=== PATIENT | female | born 1975 | race Caucasian/White ===

== ENCOUNTER 2017-01-28 23:47 | Emergency (ER) | payer OTHER ==
--- NOTE | 2017-01-29 03:27 | ED ORDER SUMMARY ---
..... Patient: HENOK TIRADO OrderSheet Merg[facility] VisitID: [id number] [address] [place] [address] 41y, F Registration Date/Time: 01/28/2017 ORDER SHEET Weight: 68.0 kg (stated) Allergies: Sulfa Antibiotics GENERAL ORDERS: UA-Culture if indicated Urgent (02:29 01/29/2017 Stacy COY) (Ack 2:35 Tami Specimen Collector) (2:42 Jakob Hernandez) MEDICATION ORDERS: IV FLUIDS: ORDER SHEET NOTES: [Electronically signed by Todd Scott R.N. (03:40 01/29/2017)] [Electronically signed by Indiana Lewis MD (17:32 01/29/2017)] [Electronically locked/signed by Todd Scott R.N. (03:40 01/29/2017)]
--- NOTE | 2017-01-29 03:27 | ED ORDER SUMMARY ---
..... Patient: HENOK TIRADO OrderSheet [facility] VisitID: [id number] [address] [place] [address] 41y, F Registration Date/Time: 01/28/2017 ORDER SHEET Weight: 68.0 kg (stated) Allergies: Sulfa Antibiotics GENERAL ORDERS: UA-Culture if indicated Urgent (02:29 01/29/2017 Stacy COY) (Ack 2:35 Tami Wood Mill Supervisor) (2:42 Jakob Hernandez) MEDICATION ORDERS: IV FLUIDS: ORDER SHEET NOTES: [Electronically signed by Todd Scott R.N. (03:40 01/29/2017)] [Electronically signed by Indiana Lewis MD (17:32 01/29/2017)] [Electronically locked/signed by Todd Scott R.N. (03:40 01/29/2017)]
--- NOTE | 2017-01-29 03:27 | ED NURSING NOTES ---
Clinical Report - Nurses [facility] [address] [place] [address] 01/28/2017 23:48 Patient: HENOK TIRADO TRIAGE Triage time 0006. Acuity: LEVEL 3. Chief Complaint: ABDOMINAL PAIN, NAUSEA and DIARRHEA. --00:15 Todd Scott R.N. 00:05 01/29/17. BP: 105/64. HR: 54. RR: 16. O2 saturation: 100%. Temp: 98.2 F. Pain level now 05/06. --00:15 Todd Scott R.N. Weight: 68 kg stated. Height/Length: 66 inches Per Patient. BMI: 24.2. --00:15 Todd Scott R.N. Medications Acyclovir Oral 200 mg, 2x a day. Amitriptyline HCl Oral 25 mg, at bedtime. Dicyclomine HCl Oral 20 mg, 4x a day. Gabapentin Oral (Tablet 600 mg) 1-1/2 tablets, 3x a day. Hydrochlorothiazide Oral 25 mg, daily. Synthroid Oral 125 mcg, daily. Vitamin D Oral (Tablet 1000 unit), q day. --00:11 Todd Scott R.N. Lyrica Oral. --00:11 Todd Scott R.N. Ampyra Oral. --00:11 Todd Scott R.N. DULoxetine HCl Oral. --00:13 Todd Scott R.N. Allergies Sulfa Antibiotics. --00:11 Todd Scott R.N. History Arrived by private vehicle. Historian: significant other and patient. Accompanied by friend. This started just prior to arrival. She has had nausea, diarrhea and abdominal pain. Treatment ENTRY OPERATOR: (dicylomine). SOCIAL HX: Never smoker. History of heavy drug use: marijuana. No alcohol use. FALL RISK ASSESSMENT: Fall risk assessment completed. No fall risk identified. NUTRITIONAL RISK ASSESSMENT: The nutritional risk assessment revealed no deficiencies. FUNCTIONAL ASSESSMENT: Functional assessment: no impairments noted. LEARNING NEEDS ASSESSMENT: The learning needs assessment revealed no barriers. SKIN INTEGRITY ASSESSMENT: Skin integrity risk assessment completed. No skin integrity risk identified. --00:15 Todd Scott R.N. PROBLEMS: Abdominal Pain. Dehydration. LNMP - Last Normal Menstrual Period. Herpes. Multiple Sclerosis. --00:13 Todd Scott R.N. ADDITIONAL SURGERIES: Gastric bypass. Kamaljit cath. --00:13 Todd Scott R.N. Interventions ID band on patient. --00:15 Todd Scott R.N. PHYSICAL ASSESSMENT GENERAL / NEURO / PSYCH: Alert. Oriented X 4. Appears in no acute distress. HEENT: Mucous membranes are pink. RESPIRATORY: Respirations not labored. Breath sounds within normal limits. CVS: Normal sinus rhythm noted. Capillary refill less than 2 seconds. GI / : Abdomen soft. Bowel sounds within normal limits. SKIN: Skin is warm and dry. --00:15 Todd Scott R.N. Ambulatory to room. Patient gowned. --00:15 Todd Scott R.N. NURSING PROGRESS NOTES Patient gowned. Head of bed elevated. Reassurance given. Patient identifiers checked. Call light placed in reach. Bed placed in lowest position. Brakes of bed on. --00:16 Todd Scott R.N. ( pt states she had to push her electric chair after the battery went earlier today.). --01:37 Todd Scott R.N. DISPOSITION / DISCHARGE Departure time: 0. Condition at departure: improved. No learning barriers present. Discharge instructions provided and reviewed with quality control director and the patient. Reviewed warnings. Treatments reviewed. Reviewed referrals. Patient and quality control director verbalized understanding. Written instructions provided in Malaysian. The patient was discharged by the physician. She was discharged home and accompanied by quality control director. She left the Emergency Department ambulatory and via private vehicle. Railroad Hand driving. --03:39 Todd Scott R.N. 03:38 01/29/17. BP: 105/65. HR: 55. RR: 16. O2 saturation: 100%. Temp: 98 F. Pain level now 02/03. --03:39 Todd Scott R.N. Locked/Released at 01/29/2017 3:40 by Todd Scott R.N.
--- NOTE | 2017-01-29 03:27 | ED NURSING NOTES ---
Clinical Report - Nurses [facility] [address] [place] [address] 01/28/2017 23:48 Patient: HENOK TIRADO TRIAGE Triage time 0006. Acuity: LEVEL 3. Chief Complaint: ABDOMINAL PAIN, NAUSEA and DIARRHEA. --00:15 Todd Scott R.N. 00:05 01/29/17. BP: 105/64. HR: 54. RR: 16. O2 saturation: 100%. Temp: 98.2 F. Pain level now 05/06. --00:15 Todd Scott R.N. Weight: 68 kg stated. Height/Length: 66 inches Per Patient. BMI: 24.2. --00:15 Todd Scott R.N. Medications Acyclovir Oral 200 mg, 2x a day. Amitriptyline HCl Oral 25 mg, at bedtime. Dicyclomine HCl Oral 20 mg, 4x a day. Gabapentin Oral (Tablet 600 mg) 1-1/2 tablets, 3x a day. Hydrochlorothiazide Oral 25 mg, daily. Synthroid Oral 125 mcg, daily. Vitamin D Oral (Tablet 1000 unit), q day. --00:11 Todd Scott R.N. Lyrica Oral. --00:11 Todd Scott R.N. Ampyra Oral. --00:11 Todd Scott R.N. DULoxetine HCl Oral. --00:13 Todd Scott R.N. Allergies Sulfa Antibiotics. --00:11 Todd Scott R.N. History Arrived by private vehicle. Historian: significant other and patient. Accompanied by friend. This started just prior to arrival. She has had nausea, diarrhea and abdominal pain. Treatment PIPING DESIGN SPECIALIST: (dicylomine). SOCIAL HX: Never smoker. History of heavy drug use: marijuana. No alcohol use. FALL RISK ASSESSMENT: Fall risk assessment completed. No fall risk identified. NUTRITIONAL RISK ASSESSMENT: The nutritional risk assessment revealed no deficiencies. FUNCTIONAL ASSESSMENT: Functional assessment: no impairments noted. LEARNING NEEDS ASSESSMENT: The learning needs assessment revealed no barriers. SKIN INTEGRITY ASSESSMENT: Skin integrity risk assessment completed. No skin integrity risk identified. --00:15 Todd Scott R.N. PROBLEMS: Abdominal Pain. Dehydration. LNMP - Last Normal Menstrual Period. Herpes. Multiple Sclerosis. --00:13 Todd Scott R.N. ADDITIONAL SURGERIES: Gastric bypass. Kamaljit cath. --00:13 Todd Scott R.N. Interventions ID band on patient. --00:15 Todd Scott R.N. PHYSICAL ASSESSMENT GENERAL / NEURO / PSYCH: Alert. Oriented X 4. Appears in no acute distress. HEENT: Mucous membranes are pink. RESPIRATORY: Respirations not labored. Breath sounds within normal limits. CVS: Normal sinus rhythm noted. Capillary refill less than 2 seconds. GI / : Abdomen soft. Bowel sounds within normal limits. SKIN: Skin is warm and dry. --00:15 Todd Scott R.N. Ambulatory to room. Patient gowned. --00:15 Todd Scott R.N. NURSING PROGRESS NOTES Patient gowned. Head of bed elevated. Reassurance given. Patient identifiers checked. Call light placed in reach. Bed placed in lowest position. Brakes of bed on. --00:16 Todd Scott R.N. ( pt states she had to push her electric chair after the battery went earlier today.). --01:37 Todd Scott R.N. DISPOSITION / DISCHARGE Departure time: 0. Condition at departure: improved. No learning barriers present. Discharge instructions provided and reviewed with construction superintendent and the patient. Reviewed warnings. Treatments reviewed. Reviewed referrals. Patient and construction superintendent verbalized understanding. Written instructions provided in Syrian. The patient was discharged by the physician. She was discharged home and accompanied by construction superintendent. She left the Emergency Department ambulatory and via private vehicle. Maintenance Director driving. --03:39 Todd Scott R.N. 03:38 01/29/17. BP: 105/65. HR: 55. RR: 16. O2 saturation: 100%. Temp: 98 F. Pain level now 02/03. --03:39 Todd Scott R.N. Locked/Released at 01/29/2017 3:40 by Todd Scott R.N.
--- NOTE | 2017-01-29 03:27 | ED CLINICAL REPORT ---
Clinical Report - Physicians/Mid Levels [facility] [address] [place] [address] 01/28/2017 23:48 Patient: HENOK TIRADO Time Seen: 01:01. Arrived- By private vehicle. Historian- patient. HISTORY OF PRESENT ILLNESS Chief Complaint: ABDOMINAL PAIN. At its maximum, severity described as moderate. When seen in the E.D., severity described as mild. Modifying factors- (Worsened by trying to sit up; improved by defecation.). It is described as "pain" and cramping and it is described as located in the left upper quadrant and left abdomen. This started today and is still present but is better now. The patient has had nausea. No loss of appetite, vomiting or diarrhea. ( states he thinks the pain is from the pt pushing her wheelchair up a hill yesterday evening. Pt states that the pain and nausea didn't start until several hours later--around 2300 tonight. Pt states she had the urge to defecate, and that once she was able to do so (in the ED), the pain and nausea improved.). Similar symptoms previously: None. Recent medical care: Not recently seen/assessed. REVIEW OF SYSTEMS No constipation, black stools, hematemesis, difficulty with urination or pain with urination. No urinary frequency, bloody stools, fever, headache or sore throat. No blurred vision, chest pain, difficulty breathing, cough or joint pain. No skin rash, chills or back pain. Denies current . All systems otherwise negative, except as recorded above. PAST HISTORY Problems: Dehydration. LNMP - Last Normal Menstrual Period. Herpes. Multiple Sclerosis. Additional Surgeries: Gastric bypass. Kamaljit cath. Medications: DULoxetine HCl Oral. Ampyra Oral. Lyrica Oral. Acyclovir Oral 200 mg, 2x a day. Amitriptyline HCl Oral 25 mg, at bedtime. Dicyclomine HCl Oral 20 mg, 4x a day. Gabapentin Oral (Tablet 600 mg) 1-1/2 tablets, 3x a day. Hydrochlorothiazide Oral 25 mg, daily. Synthroid Oral 125 mcg, daily. Vitamin D Oral (Tablet 1000 unit), q day. Allergies: Sulfa Antibiotics. SOCIAL HISTORY Never smoker. History of drug use: marijuana. No alcohol use. ADDITIONAL NOTES The nursing notes have been reviewed. PHYSICAL EXAM Vital Signs: 01/29/2017 00:05 BP: 105/64. HR: 54. RR: 16. O2 saturation: 100%. Temp: 98.2 F. Have been reviewed. Appearance: Alert. Oriented X3. No acute distress. Eyes: Pupils equal, round and reactive to light. Eyes normal inspection. ENT: Nose normal. Neck: Normal inspection. Neck supple. CVS: Normal heart rate and rhythm. Heart sounds normal. Pulses normal. Respiratory: No respiratory distress. Breath sounds normal. Abdomen: Soft. Mild tenderness in the left upper quadrant. No guarding or rebound tenderness. Back: Normal inspection. No CVA tenderness. Skin: Skin warm and dry. Normal skin color. No rash. Normal skin turgor. Extremities: No lower extremity edema. Neuro: Oriented X 3. LABS, X-RAYS, AND EKG Laboratory Tests: UA-Culture if indicated: (MCKENZIE: 01/29/2017 02:40) ( MsgRcvd 01/29/2017 02:49) Final results Test Result Flag Units (Reference) URINE COLOR YELLOW URINE APPEARANCE CLEAR URINE GLUCOSE NEGATIVE (NEGATIVE) URINE BILIRUBIN NEGATIVE (NEGATIVE) URINE KETONE 1+ (NEGATIVE) URINE SPECIFIC GRAVITY 1.025 (1.010-1.030) URINE PH 6.0 (5.0-8.0) URINE PROTEIN NEGATIVE (NEGATIVE) URINE UROBILINOGEN 0.2 EU/dL (0.2-1.0) URINE NITRITE NEGATIVE (NEGATIVE) URINE BLOOD NEGATIVE (NEGATIVE) URINE LEUK ESTERASE NEGATIVE (NEGATIVE) URINE RBC 0-1 rbc/hpf (0-1) URINE WBC 0-1 wbc/hpf (0-1) URINE EPITHELIAL CELLS 0-1 EPI/hpf (0-5) URINE BACTERIA NONE SEEN (NONE SEEN) URINE COMMENT CULT NOT INDICATED URINE CULTURES ARE SET-UP BASED ON THE FOLLOWING CRITERIA:POSITIVE NITRITEPOSITIVE LEUKOCYTE ESTERASEGREATER THAN 10 WHITE BLOOD CELLSMODERATE (2+) OR GREATER BACTERIA . Pulse Oximetry: 01/29/2017 00:05 O2 saturation: 100%. (FIO2 - room air). Interpretation: normal. PROGRESS AND PROCEDURES Course of Care: UA was negative. Pt declined any medication, and stated she only wanted the UA done, as she was feeling much better. I did feel this was reasonable, as I did not find evidence of an emergent condition. Patient and spouse counseled in person regarding the patient's stable condition, test results, diagnosis and need for follow-up. Concerns were addressed. Old medical records reviewed. Disposition: Discharged. Condition: stable and improved. CLINICAL IMPRESSION Acute left upper quadrant abdominal pain. Moderate nausea. INSTRUCTIONS Drink plenty of fluids. Warnings: GENERAL WARNINGS: Return or contact your physician immediately if your condition worsens or changes unexpectedly, if not improving as expected, or if other problems arise. Your Current Medications: CONTINUE TAKING THE FOLLOWING MEDICATIONS: Acyclovir Oral : 200 mg 2x a day. Amitriptyline HCl Oral : 25 mg at bedtime. Ampyra Oral. Dicyclomine HCl Oral : 20 mg 4x a day. DULoxetine HCl Oral. Gabapentin Oral : Tablet 600 mg, 1-1/2 tablets 3x a day. Hydrochlorothiazide Oral : 25 mg daily. Lyrica Oral. Synthroid Oral : 125 mcg daily. Vitamin D Oral : Tablet 1000 unit, q day. Follow-up: Follow up with your doctor as needed. Understanding of the discharge instructions verbalized by patient. (Electronically signed by Indiana Lewis MD 01/29/2017 17:32)
--- NOTE | 2017-01-29 17:33 | ED MED RECONCILIATION SUMMARY ---
Patient: HENOK TIRADO Medication Reconciliation Report [facility] VisitID: [id number] [address] [place] [address] 41y, F Registration Date/Time: 01/28/2017 Weight: 68.0 kg Height/Length: 66 in. BMI: 24.2 ALLERGIES: Sulfa Antibiotics The patient's Home Medications are listed below: CONTINUE TAKING THE FOLLOWING MEDICATIONS: Acyclovir Oral 200 mg, 2x a day Amitriptyline HCl Oral 25 mg, at bedtime Ampyra Oral Dicyclomine HCl Oral 20 mg, 4x a day DULoxetine HCl Oral Gabapentin Oral (600 mg) 1-1/2 tablets, 3x a day Hydrochlorothiazide Oral 25 mg, daily Lyrica Oral Synthroid Oral 125 mcg, daily Vitamin D Oral (1000 unit), q day The source(s) of the original Home Medication information: Not obtained. The following Medications were given to the patient in the Emergency Department: None. The following Medications were prescribed to the patient: None.
--- NOTE | 2017-01-29 17:33 | ED MAR SUMMARY ---
..... Medication Administration Record [facility] [address] [place] [id number] Patient: HENOK TIRADO Visit ID: [id number] 41y, F Weight: 68.0 kg Height/Length: 66 in BMI: 24.2 ALLERGIES: Sulfa Antibiotics
--- NOTE | 2017-01-29 17:33 | ED MAR SUMMARY ---
..... Medication Administration Record [facility] [address] [place] [id number] Patient: HENOK TIRADO Visit ID: [id number] 41y, F Weight: 68.0 kg Height/Length: 66 in BMI: 24.2 ALLERGIES: Sulfa Antibiotics
--- NOTE | 2017-01-29 17:33 | ED DISCHARGE INSTRUCTIONS ---
Patient: HENOK TIRADO General Instructions [facility] VisitID: [id number] [place] [address] 41y, F Registration Date/Time: 01/28/2017 Acute left upper quadrant abdominal pain. Moderate nausea. INSTRUCTIONS Drink plenty of fluids. Warnings: GENERAL WARNINGS: Return or contact your physician immediately if your condition worsens or changes unexpectedly, if not improving as expected, or if other problems arise. Your Current Medications: CONTINUE TAKING THE FOLLOWING MEDICATIONS: Acyclovir Oral : 200 mg 2x a day. Amitriptyline HCl Oral : 25 mg at bedtime. Ampyra Oral. Dicyclomine HCl Oral : 20 mg 4x a day. DULoxetine HCl Oral. Gabapentin Oral : Tablet 600 mg, 1-1/2 tablets 3x a day. Hydrochlorothiazide Oral : 25 mg daily. Lyrica Oral. Synthroid Oral : 125 mcg daily. Vitamin D Oral : Tablet 1000 unit, q day. Follow-up: Follow up with your doctor as needed. Understanding of the discharge instructions verbalized by patient. ADDITIONAL INFORMATION Abdominal Pain, Unknown Cause (Female) The exact cause of your abdominal (stomach) pain is not certain. This does not mean that this is something to worry about, or the right tests were not done. Everyone likes to know the exact cause of the problem, but sometimes with abdominal pain, there is no clear-cut cause, and this could be a good thing. The good news is that your symptoms can be treated, and you will feel better. Your condition does not seem serious now; however, sometimes the signs of a serious problem may take more time to appear. For this reason,it is important for you to watch for any new symptoms, problems,or worsening of your condition. Over the next few days, the abdominal pain may come and go, or be continuous. Other common symptoms can include nausea and vomiting. Sometimes it can be difficult to tell if you feel nauseous, you may just feel bad and not associate that feeling with nausea. Constipation, diarrhea, and a fever may go along with the pain. The pain may continue even if treated correctly over the following days. Depending on how things go, sometimes the cause can become clear and may require further or different treatment. Additional evaluations, medications, or tests may be needed. Home care Your health care provider may prescribe medications for pain, symptoms, or an infection. Follow the health care provider's instructions for taking these medications. General care Rest until your next exam. No strenuous activities. Try to find positions that ease discomfort. A small pillow placed on the abdomen may help relieve pain. Something warm on your abdomen (such as a heating pad) may help, but be careful not to burn yourself. Diet Do not force yourself to eat, especially if having cramps, vomiting, or diarrhea. Water is important so you do not get dehydrated. Soup may also be good. Sports drinks may also help, especially if they are not too acidic. Make sure you don't drink sugary drinks as this can make things worse. Take liquids in small amounts. Do not guzzle them. Caffeine sometimes makes the pain and cramping worse. Avoid dairy products if you have vomiting or diarrhea. Don't eat large amounts at a time. Wait a few minutes between bites. Eat a diet low in fiber (called a low-residue diet). Foods allowed include refined breads, white rice, fruit and vegetable juices without pulp, tender meats. These foods will pass more easily through the intestine. Avoid whole-grain foods, whole fruits and vegetables, meats, seeds and nuts, fried or fatty foods, dairy, alcohol and spicy foods until your symptoms go away. Follow-up care Follow up with your health care provider as instructed, or if your pain does not begin to improve in the next 24 hours. When to seek medical care Seek prompt medical care if any of the following occur: Pain gets worse or moves to the right lower abdomen New or worsening vomiting or diarrhea Swelling of the abdomen Unable to pass stool for more than three days Fever of 100.4F (38C) or higher, or as directed by your healthcare provider. Blood in vomit or bowel movements (dark red or black color) Jaundice (yellow color of eyes and skin) Weakness, dizziness Chest, arm, back, neck or jaw pain Unexpected vaginal bleeding or missed period Call 911 Call emergency services if any of the following occur: Trouble breathing Confusion Fainting or loss of consciousness Rapid heart rate Seizure You have been given the following additional information: Abdominal Pain, Unknown Cause, (Female) (Electronically signed by Indiana Lewis MD 01/29/2017 17:32)
--- NOTE | 2017-01-29 17:33 | ED MED RECONCILIATION SUMMARY ---
Patient: HENOK TIRAOD Medication Reconciliation Report [facility] VisitID: [id number] [address] [place] [address] 41y, F Registration Date/Time: 01/28/2017 Weight: 68.0 kg Height/Length: 66 in. BMI: 24.2 ALLERGIES: Sulfa Antibiotics The patient's Home Medications are listed below: CONTINUE TAKING THE FOLLOWING MEDICATIONS: Acyclovir Oral 200 mg, 2x a day Amitriptyline HCl Oral 25 mg, at bedtime Ampyra Oral Dicyclomine HCl Oral 20 mg, 4x a day DULoxetine HCl Oral Gabapentin Oral (600 mg) 1-1/2 tablets, 3x a day Hydrochlorothiazide Oral 25 mg, daily Lyrica Oral Synthroid Oral 125 mcg, daily Vitamin D Oral (1000 unit), q day The source(s) of the original Home Medication information: Not obtained. The following Medications were given to the patient in the Emergency Department: None. The following Medications were prescribed to the patient: None.
== END 2017-01-29 03:38 | disposition home or self-care (01) ==
LOC: ED SRH 23:47
DX: R10.12 Left upper quadrant pain (principal); R11.0 Nausea; Z79.899 Other long term (current) drug therapy; Z88.2 Allergy status to sulfonamides
CPT/HCPCS: 90004

== ENCOUNTER 2017-05-11 17:52 | Outpatient (CLI) | payer OTHER ==
--- NOTE | 2017-05-11 18:49 | DIAGNOSTIC IMAGING REPORT ---
PROCEDURE: US VENOUS - RIGHT EXT INDICATION: RIGHT LEG SWELLING TECHNIQUE: Color Doppler duplex imaging of the deep and superficial venous system without and with compression. COMPARISON: None. FINDINGS: There is marked edema of the right lower extremity calf limits evaluation of the calf veins. Allowing for this, the and superficial venous system of the right lower extremity is within normal limits. There is no evidence of deep vein thrombosis or superficial thrombophlebitis. IMPRESSION: 1. Marked edema of the right lower extremity calf. 2. Negative venous ultrasound of the right lower extremity. 3. Findings called to Dr. Dior.
== END 2017-05-11 23:00 | disposition home or self-care (01) ==
LOC: US SRH 17:52
DX: M79.89 Other specified soft tissue disorders (principal); R60.9 Edema, unspecified